=== PATIENT | female | born 1980 | race Caucasian/White ===

== ENCOUNTER 2017-01-14 17:32 | Emergency (ER) | payer OTHER ==
[~2017-01-14] VITALS: Ht 147.3 cm; Wt 69.9 kg
[2017-01-14 20:44] LABS: Basophils # (auto) 0 uL; DEFINITIVE VIEW TRANSMISSION; Eosinophils # (auto) 0.1 uL; Lymphocytes # (auto) 2.4 uL; White Blood Cell 8.8 10^3/uL (4.4-10.8)
[2017-01-14 20:52] LABS: Basophils % (auto) 0.4 % (0.0-2.0); Eosinophils % (auto) 1.2 % (0.0-7.0); Hematocrit 30.5 % (36.0-46.0); Hemoglobin 9.2 g/dL (12.2-16.2); Lymphocytes % (auto) 27.3 % (10.0-50.0); Mean Corpuscular Hemoglobin 21.4 pg (28.0-32.0); Mean Corpuscular Hgb Conc. 30.2 g/dL (32.0-36.0); Mean Platelet Volume 9.6 fL (7.4-10.4); Monocytes # (auto) 0.8 uL; Monocytes % (auto) 8.7 % (0.0-12.0); Neutrophils # (auto) 5.5 uL; Neutrophils % (auto) 62.4 % (37.0-80.0); Platelet Count (auto) 253 10^3/uL (140-450); Red Cell Distribution Width 17.3 % (11.6-16.0)
[2017-01-14 21:16] LABS: Albumin 3.8 g/dL (3.4-5.0); BUN/Creatinine Ratio 12.5; Bilirubin, Total 0.3 mg/dL (0.2-1.0); Calcium 8.7 mg/dL (8.5-10.1); Potassium 3.5 mmol/L (3.5-5.1); Total Protein 7.7 g/dL (6.4-8.2)
[2017-01-14] MEDS ORDERED: HYDROcodone-ACET 10/325MG TAB PO ONE (22:00)
[2017-01-14 22:08] VITALS: BP 102/67
== END 2017-01-14 22:33 | disposition home or self-care (01) ==
LOC: ER 17:32
DX: K42.9 Umbilical hernia without obstruction or gangrene (principal); R10.9 Unspecified abdominal pain; G89.4 Chronic pain syndrome; F20.9 Schizophrenia, unspecified; Z88.6 Allergy status to analgesic agent; Z88.0 Allergy status to penicillin
CPT/HCPCS: 36415; 74176; 80053; 81025; 85025

== ENCOUNTER 2017-03-06 09:10 | Emergency (ER) | payer MEDICAID, OTHER ==
[~2017-03-06] VITALS: Ht 147.3 cm; Wt 77.1 kg
[~2017-03-06 09:10] MED LIST: ATEN100T PO; LORA2TAB10 PO; LOS25T PO; METH750T3 PO; QUET200T44 PO
[2017-03-06 10:03] LABS: Basophils # (auto) 0 uL; Basophils % (auto) 0.3 % (0.0-2.0); DEFINITIVE VIEW TRANSMISSION; Eosinophils # (auto) 0.1 uL; Eosinophils % (auto) 1.4 % (0.0-7.0); Hematocrit 29.4 % (36.0-46.0); Hemoglobin 9.4 g/dL (12.2-16.2); Lymphocytes % (auto) 12.4 % (10.0-50.0); Mean Corpuscular Hemoglobin 21.3 pg (28.0-32.0); Mean Corpuscular Hgb Conc. 31.8 g/dL (32.0-36.0); Mean Platelet Volume 8.6 fL (7.4-10.4); Monocytes # (auto) 0.5 uL; Monocytes % (auto) 6.3 % (0.0-12.0); Neutrophils # (auto) 6.6 uL; Neutrophils % (auto) 79.6 % (37.0-80.0); Platelet Count (auto) 246 10^3/uL (140-450); Red Cell Distribution Width 17.5 % (11.6-16.0); White Blood Cell 8.3 10^3/uL (4.4-10.8)
[2017-03-06 10:24] LABS: Microcytosis Marked; Platelet Estimate Adequate
[2017-03-06 10:25] LABS: Ovalocytes FEW
[2017-03-06 10:26] LABS: Hypochromia Moderate
[2017-03-06 10:35] LABS: Albumin 3.4 g/dL (3.4-5.0); Anion Gap 10 (5-15); Aspartate Aminotransferase 62 U/L (15-37); BUN/Creatinine Ratio 20.8; Blood Urea Nitrogen 11 mg/dL (7-18); Calcium 8.6 mg/dL (8.5-10.1); Carbon Dioxide 26 mmol/L (21-32); Chloride 104 mmol/L (98-107); GFR African American 167 mL/min; GFR Non-African American 138 mL/min; Glucose 101 mg/dL (74-106); Potassium 4.2 mmol/L (3.5-5.1); Salicylate < 1.7 mg/dL (2.8-20.0); Sodium 140 mmol/L (136-145)
[2017-03-06 10:38] LABS: Alkaline Phosphatase 144 U/L (45-117); Bilirubin, Total 0.1 mg/dL (0.2-1.0); Total Protein 7.7 g/dL (6.4-8.2)
[2017-03-06 10:39] LABS: Acetaminophen < 2.0 ug/mL (10-30)
[2017-03-06 11:05] LABS: Urine RBC None Seen /hpf (0 - 4)
[2017-03-06 11:30] VITALS: BP 136/90
[2017-03-06] MEDS ORDERED: LORazepam 2MG/ML-1ML VIAL IV ONE (11:30)
[2017-03-06 11:31] LABS: Urine Bilirubin Negative (Negative); Urine Blood Negative /uL (Negative); Urine Color Yellow (Yellow); Urine Glucose Normal (Normal); Urine Ketone Negative (Negative); Urine Nitrite Negative (Negative); Urine Squamous Epithelial Cell MANY /hpf (<5); Urine Urobilinogen Normal (Negative)
[2017-03-06] MEDS ORDERED: NITROFURANTOIN (MONO) 100 mg CAP PO ONE (12:30)
== END 2017-03-06 13:14 | disposition home or self-care (01) ==
LOC: ER 09:10 → EDBD 09:10 → ER 13:14
DX: F32.9 Major depressive disorder, single episode, unspecified (principal); N39.0 Urinary tract infection, site not specified; F41.9 Anxiety disorder, unspecified; I10 Essential (primary) hypertension
CPT/HCPCS: 36415; 80053; 80307; 80320; 80329; 81001; 81025; 85025; 93005; 96374; 99285; J2060

== ENCOUNTER 2017-03-17 11:11 | Emergency (ER) | payer MEDICAID, OTHER ==
[~2017-03-17] VITALS: Ht 167.6 cm; Wt 63.5 kg
[2017-03-17] MEDS: LORazepam 0.5 MG TAB PO ONE (11:43)
[2017-03-17] MEDS ORDERED: PERCOT PO (11:44)
[2017-03-17] MEDS: HYDROcodone-ACET 5/325MG TAB PO ONE (11:52)
[2017-03-17] MEDS: METHOCARBAMOL 500 MG TAB PO ONE (11:53)
[2017-03-17 12:22] VITALS: BP 145/75
== END 2017-03-17 12:25 | disposition home or self-care (01) ==
LOC: EDBD 11:11 → ER 11:11
DX: F41.9 Anxiety disorder, unspecified (principal); I10 Essential (primary) hypertension; F20.9 Schizophrenia, unspecified; Z88.0 Allergy status to penicillin; Z76.0 Encounter for issue of repeat prescription; Z88.6 Allergy status to analgesic agent; Z98.890 Other specified postprocedural states

== ENCOUNTER 2017-04-21 16:27 | Emergency (ER) | payer MEDICAID ==
[~2017-04-21] VITALS: Ht 147.3 cm; Wt 77.1 kg
[~2017-04-21 16:27] MED LIST changes: +PERCOT PO
[2017-04-21] MEDS ORDERED: OXYCODONE W/ ACETAMINOPHEN 5/325MG TABLET PO ONE (17:15)
[2017-04-21] MEDS ORDERED: LORazepam 0.5 MG TAB PO ONE (17:15)
[2017-04-21 17:38] LABS: Urine Bilirubin Negative (Negative); Urine Blood Negative /uL (Negative); Urine Color Yellow (Yellow); Urine Glucose Normal (Normal); Urine Ketone Negative (Negative); Urine Mucus FEW (None Seen); Urine Nitrite Negative (Negative); Urine RBC 1 /hpf (0 - 4); Urine Squamous Epithelial Cell FEW /hpf (<5); Urine Urobilinogen Normal (Negative)
[2017-04-21 17:49] LABS: Basophils # (auto) 0 uL; Basophils % (auto) 0.4 % (0.0-2.0); CONDITION Y; DEFINITIVE SEE PRINTOUT; Eosinophils # (auto) 0 uL; Eosinophils % (auto) 0.4 % (0.0-7.0); Hematocrit 31.2 % (36.0-46.0); Hemoglobin 9.5 g/dL (12.2-16.2); Lymphocytes # (auto) 1.9 uL; Lymphocytes % (auto) 17.7 % (10.0-50.0); Mean Corpuscular Hemoglobin 20.2 pg (28.0-32.0); Mean Corpuscular Hgb Conc. 30.5 g/dL (32.0-36.0); Mean Corpuscular Volume 66.4 fL (80.0-100.0); Monocytes # (auto) 0.9 uL; Monocytes % (auto) 8.2 % (0.0-12.0); Neutrophils # (auto) 7.9 uL; Neutrophils % (auto) 73.3 % (37.0-80.0); Platelet Count (auto) 343 10^3/uL (140-450); Red Cell Distribution Width 18.4 % (11.6-16.0); White Blood Cell 10.8 10^3/uL (4.4-10.8)
[2017-04-21 18:07] LABS: Acetaminophen < 2.0 ug/mL (10-30); Salicylate < 1.7 mg/dL (2.8-20.0)
[2017-04-21 18:17] LABS: BUN/Creatinine Ratio 15.1; Bilirubin, Total 0.1 mg/dL (0.2-1.0); Potassium 3.9 mmol/L (3.5-5.1); Total Protein 7.7 g/dL (6.4-8.2)
[2017-04-21] MEDS ORDERED: LORazepam 2MG/ML-1ML VIAL IV ONE (20:30)
[2017-04-21] MEDS ORDERED: HYDROmorphone HCL 2 MG/ML VL IV ONE (20:30)
[2017-04-21] MEDS ORDERED: ONDANSETRON HCL 4 MG/2 ML VIAL IV ONE (20:30)
[2017-04-22] MEDS ORDERED: ONDANSETRON HCL 4 MG/2 ML VIAL IV ONE (00:30)
[2017-04-22] MEDS ORDERED: HYDROmorphone HCL 2 MG/ML VL IV ONE (00:30)
[2017-04-22] MEDS ORDERED: LORazepam 2MG/ML-1ML VIAL IV ONE (00:30)
[2017-04-22 08:20] VITALS: BP 139/97
== END 2017-04-22 09:38 | disposition home or self-care (01) ==
LOC: EDBD 16:27 → ER 16:27
DX: F41.9 Anxiety disorder, unspecified (principal); F20.9 Schizophrenia, unspecified; F32.9 Major depressive disorder, single episode, unspecified; R45.851 Suicidal ideations; I10 Essential (primary) hypertension
CPT/HCPCS: 36415; 80053; 80307; 80320; 80329; 81001; 81025; 85025; 96374; 96375; 96376; 99284; J1170; J2060; J2405

== ENCOUNTER 2017-05-05 11:02 | Emergency (ER) | payer MEDICAID ==
[~2017-05-05] VITALS: Ht 147.3 cm; Wt 75.7 kg
[2017-05-05] MEDS ORDERED: HYDROcodone-ACET 10/325MG TAB PO ONE ×2 (11:30→18:00)
[2017-05-05] MEDS ORDERED: LORazepam 0.5 MG TAB PO ONE (11:30)
[2017-05-05 12:05] LABS: Basophils # (auto) 0 uL; Basophils % (auto) 0.4 % (0.0-2.0); CONDITION Y; DEFINITIVE SEE PRINTOUT; Eosinophils # (auto) 0 uL; Eosinophils % (auto) 0.1 % (0.0-7.0); Hematocrit 31.8 % (36.0-46.0); Hemoglobin 9.7 g/dL (12.2-16.2); Lymphocytes # (auto) 1.4 uL; Mean Corpuscular Hemoglobin 20.3 pg (28.0-32.0); Mean Corpuscular Hgb Conc. 30.5 g/dL (32.0-36.0); Mean Corpuscular Volume 66.5 fL (80.0-100.0); Mean Platelet Volume 9.3 fL (7.4-10.4); Monocytes # (auto) 0.4 uL; Monocytes % (auto) 4.4 % (0.0-12.0); Neutrophils # (auto) 8.2 uL; Neutrophils % (auto) 81.1 % (37.0-80.0); Platelet Count (auto) 313 10^3/uL (140-450); Red Cell Distribution Width 18.7 % (11.6-16.0); White Blood Cell 10.1 10^3/uL (4.4-10.8)
[2017-05-05 12:27] LABS: Anion Gap 10 (5-15); BUN/Creatinine Ratio 11.8; Blood Urea Nitrogen 6 mg/dL (7-18); Calcium 8.4 mg/dL (8.5-10.1); Carbon Dioxide 27 mmol/L (21-32); Chloride 104 mmol/L (98-107); GFR African American 174 mL/min; GFR Non-African American 143 mL/min; Glucose 102 mg/dL (74-106); Potassium 3.2 mmol/L (3.5-5.1); Sodium 141 mmol/L (136-145)
[2017-05-05] MEDS ORDERED: OLANZapine 5 MG TAB PO ONE (17:15)
[2017-05-05 18:56] VITALS: BP 122/75
== END 2017-05-05 20:36 | disposition home or self-care (01) ==
LOC: ER 11:02
DX: R45.851 Suicidal ideations (principal); R51 Headache; F41.9 Anxiety disorder, unspecified; I10 Essential (primary) hypertension; F20.9 Schizophrenia, unspecified; Z90.49 Acquired absence of other specified parts of digestive tract; Z98.890 Other specified postprocedural states; Z88.0 Allergy status to penicillin; Z88.8 Allergy status to other drugs, medicaments and biological substances
CPT/HCPCS: 36415; 80048; 80307; 80320; 85025

== ENCOUNTER 2017-06-14 11:33 | Emergency (ER) | payer MEDICAID ==
[~2017-06-14] VITALS: Ht 147.3 cm; Wt 77.1 kg
[2017-06-14] MEDS ORDERED: LORazepam 2MG/ML-1ML VIAL IV ONE (16:00)
[2017-06-14] MEDS ORDERED: SODIUM CHLORIDE 0.9% 1,000 ML IV ONE (16:00)
[2017-06-14] MEDS ORDERED: ACETAMINOPHEN 325 MG TAB PO ONE ×2 (17:00→17:40)
[2017-06-14 17:10] LABS: Basophils # (auto) 0 uL; Basophils % (auto) 0.3 % (0.0-2.0); CONDITION Y; DEFINITIVE SEE PRINTOUT; Eosinophils # (auto) 0 uL; Eosinophils % (auto) 0.2 % (0.0-7.0); Hematocrit 38.6 % (36.0-46.0); Hemoglobin 12.2 g/dL (12.2-16.2); Lymphocytes # (auto) 1.3 uL; Lymphocytes % (auto) 16.2 % (10.0-50.0); Mean Corpuscular Hemoglobin 24.9 pg (28.0-32.0); Mean Corpuscular Hgb Conc. 31.5 g/dL (32.0-36.0); Mean Platelet Volume 10.6 fL (7.4-10.4); Monocytes # (auto) 0.7 uL; Neutrophils % (auto) 74.3 % (37.0-80.0); Platelet Count (auto) 174 10^3/uL (140-450); SUSPECT SEE PRINTOUT; White Blood Cell 8.1 10^3/uL (4.4-10.8)
[2017-06-14 17:29] LABS: Albumin 3.7 g/dL (3.4-5.0); BUN/Creatinine Ratio 23.9; Calcium 8.5 mg/dL (8.5-10.1); Potassium 3.5 mmol/L (3.5-5.1)
[2017-06-14 17:32] LABS: Bilirubin, Total 0.3 mg/dL (0.2-1.0); Total Protein 7.1 g/dL (6.4-8.2)
[2017-06-14 17:35] LABS: Anisocytosis Moderate; Hypochromia Slight; Large Platelets FEW; Platelet Estimate Adequa; Tear Drop Cells FEW
[2017-06-14 18:41] VITALS: BP 155/98
[2017-06-14] MEDS ORDERED: LORazepam 0.5 MG TAB PO ONE ×2 (19:00)
== END 2017-06-14 19:15 | disposition home or self-care (01) ==
LOC: ER 11:33
DX: F20.9 Schizophrenia, unspecified (principal); F41.9 Anxiety disorder, unspecified; R45.851 Suicidal ideations; M41.9 Scoliosis, unspecified; I10 Essential (primary) hypertension
CPT/HCPCS: 36415; 80053; 80307; 80320; 85025; 96361; 96374; 99291; J2060; J7030

== ENCOUNTER 2017-06-15 10:12 | Emergency (ER) | payer MEDICAID ==
[~2017-06-15] VITALS: Ht 147.3 cm; Wt 77.1 kg
[2017-06-15] MEDS ORDERED: ACETAMINOPHEN 325 MG TAB PO ONE (12:00)
[2017-06-15] MEDS ORDERED: LORazepam 0.5 MG TAB PO ONE (12:00)
[2017-06-15 12:59] LABS: Urine Bacteria NONE SEEN /hpf (None Seen); Urine Blood TRACE /uL (Negative); Urine Mucus FEW (None Seen); Urine Specific Gravity 1.019 (1.001-1.035); Urine WBC 3 /hpf (0 - 5)
[2017-06-16] MEDS ORDERED: LORazepam 0.5 MG TAB PO ONE ×2 (02:00→07:30)
[2017-06-16] MEDS ORDERED: HALOPERIDOL LACTATE 5 MG/ML INJ VIAL IM ONE (09:15)
[2017-06-16] MEDS ORDERED: ACETAMINOPHEN 325 MG TAB PO ONE (12:45)
[2017-06-17] MEDS: LORazepam 0.5 MG TAB PO PRN ×3 (08:06→23:13)
[2017-06-17 08:32] VITALS: BP 133/80
[2017-06-17] MEDS: OLANZapine 5 MG TAB PO SCH (10:23)
[2017-06-17] MEDS ORDERED: LORazepam 0.5 MG TAB ONE ×2 (16:27→23:03)
[2017-06-17] MEDS ORDERED: ACETAMINOPHEN 325 MG TAB PO ONE ×2 (17:45→18:22)
[2017-06-18] MEDS ORDERED: LORazepam 0.5 MG TAB ONE (10:10)
[2017-06-18] MEDS ORDERED: OLANZapine 5 MG TAB ONE (10:10)
[2017-06-18] MEDS: LORazepam 0.5 MG TAB PO PRN (10:17)
[2017-06-18] MEDS: OLANZapine 5 MG TAB PO SCH (10:17)
== END 2017-06-18 11:37 | disposition home or self-care (01) ==
LOC: EDBD 10:12 → ER 10:12
DX: F41.9 Anxiety disorder, unspecified (principal); I10 Essential (primary) hypertension; F20.9 Schizophrenia, unspecified; M41.9 Scoliosis, unspecified; N39.0 Urinary tract infection, site not specified; Z98.890 Other specified postprocedural states; Z79.899 Other long term (current) drug therapy; Z88.0 Allergy status to penicillin; Z88.8 Allergy status to other drugs, medicaments and biological substances; Z90.49 Acquired absence of other specified parts of digestive tract
CPT/HCPCS: 74176; 81001; 81025; 94761; 96372; 99285; J1630

== ENCOUNTER 2018-12-16 08:05 | Emergency (ER) | payer MEDICAID, OTHER ==
[~2018-12-16] VITALS: Ht 147.3 cm; Wt 94.3 kg
[2018-12-16 08:43] VITALS: BP 142/88
[2018-12-16] MEDS ORDERED: clonazePAM 0.5 MG TAB PO ONE (09:30)
[2018-12-16] MEDS ORDERED: ACETAMINOPHEN 500 MG TAB PO ONE (10:00)
== END 2018-12-16 10:13 | disposition home or self-care (01) ==
LOC: EDBD 08:05 → ER 08:05
DX: F41.9 Anxiety disorder, unspecified (principal); H66.92 Otitis media, unspecified, left ear; I10 Essential (primary) hypertension; F20.9 Schizophrenia, unspecified; Z76.0 Encounter for issue of repeat prescription; Z88.0 Allergy status to penicillin; Z88.6 Allergy status to analgesic agent; Z90.49 Acquired absence of other specified parts of digestive tract

== ENCOUNTER 2022-01-18 21:16 | Emergency (ER) | payer MEDICAID ==
[~2022-01-18] VITALS: Ht 149.9 cm; Wt 130.2 kg
[~2022-01-18 21:16] MED LIST changes: -LORA2TAB10 PO; +LORA2TAB12 PO; +METH750T22 PO; -METH750T3 PO; -QUET200T44 PO; +QUET200T45 PO
[2022-01-18 21:17] VITALS: BP 144/90
== END 2022-01-18 22:30 | disposition left against medical advice (07) ==
LOC: ER 21:16
DX: F41.9 Anxiety disorder, unspecified (principal); Z53.21 Procedure and treatment not carried out due to patient leaving prior to being seen by health care provider
CPT/HCPCS: 93005